=== PATIENT | female | born 1950 | race Caucasian/White ===

== ENCOUNTER 2016-12-08 11:53 | Inpatient (IN) | payer OTHER, MEDICARE ==
[~2016-12-08 11:53] MED LIST: HYDROmorphONE/DILAUDID 1 MG/ML SYR IVP ONE; ONDANSETRON 4 MG/2 ML VIAL IVP ONE
[2016-12-08] MEDS ORDERED: HYDROmorphONE/DILAUDID 1 MG/ML SYR ONE ×2 (11:58→13:24)
[2016-12-08] MEDS ORDERED: ONDANSETRON 4 MG/2 ML VIAL ONE ×2 (11:59→19:03)
[2016-12-08] MEDS ORDERED: HYDROmorphONE/DILAUDID 1 MG/ML SYR IVP ONE (13:40)
[2016-12-08] MEDS ORDERED: BUPIVACAINE 0.5% 30 ML SDV ONE (14:27)
[2016-12-08] MEDS ORDERED: ROPIVACAINE HCL 20 MG/10 ML INJ EP ONE (14:28)
[2016-12-08] MEDS ORDERED: BACITRACIN 50,000 UNITS/10 ML SYR IRR ONE (14:28)
[2016-12-08] MEDS ORDERED: POLYMYXIN B SULFATE 500,000 UNIT/10 ML SYR IRR ONE (14:28)
[2016-12-08] MEDS ORDERED: ONDANSETRON 4 MG/2 ML VIAL IVP PRN (14:58)
[2016-12-08] MEDS ORDERED: D5W LR 1,000 ML IV SCH (15:00)
--- NOTE | 2016-12-08 16:04 | EDPHY ---
H & P Stated Complaint: tib/fib fracture following fall. - Personal History Current Tetanus/Diphtheria Vaccine: Yes Current Tetanus Diphtheria and Acellular Pertussis (TDAP): Yes - Medical/Surgical History Hx Asthma: No Hx Chronic Respiratory Disease: No Hx Diabetes: No Hx Cardiac Disease: No Hx Renal Disease: No Hx Cirrhosis: No Hx Alcoholism: No Hx HIV/AIDS: No Hx Splenectomy or Spleen Trauma: No Other PMH: osteoporosis, VERTIGO. Seasonal allergies - Social History Smoking Status: Never smoked Time Seen by Provider: 12/08/16 12:00 HPI/ROS: Chief complaint: Right leg injury History of present illness: This is a 66-year-old female who presents to the emergency department for a right leg injury. Patient was hiking when she tripped and fell striking her lower leg against the ground. She noted a deformity. She did try to push the leg straight again. She has had pain in this region. She is unable to ambulate. She had to be rescued by [facility] and was brought to the emergency department by EMS. She denies open wounds to the leg. She denies abnormal coolness or paresthesias in the leg. Patient denies trauma to the rest of the body including the head or neck. Review of systems: A 10 point review of systems was obtained and other than described above was negative (Frank Cooper) - Physical Exam Exam: General Appearance: Alert, nontoxic Eyes: PERRLA Respiratory: Lungs clear to auscultation bilaterally Cardiovascular: Regular rate and rhythm. DP and PT pulses 2+. Gastrointestinal: Soft, nondistended, nontender. Neurological: Alert and oriented. Sensation intact in the right lower extremity. Skin: Contusion of the right lower leg. No open wounds noted. Musculoskeletal: Head is normocephalic, atraumatic. Spine is nontender to palpation. There is pain in the right lower extremity and right ankle. She does not want move the right leg secondary to pain. Muscle compartments of the right lower leg are soft on my evaluation. The other extremities are unremarkable. (Frank Cooper) Constitutional: Initial Vital Signs Heart Rate 59 L 12/08/16 11:53 Respiratory Rate 18 12/08/16 11:53 Blood Pressure 128/74 H 12/08/16 11:53 O2 Sat (%) 100 12/08/16 11:53 O2 Delivery Mode Nasal Cannula O2 (L/minute) 2 Allergies/Adverse Reactions: No Known Allergies Allergy (Unverified 03/12/16 07:50) Home Medications: Medication Instructions Recorded Fluticasone Nasal [Flonase Nasal 1 sprays NASAL DAILY 03/12/16 [facility] (RX)] Estring 2mg 1 unit VG .[id number] 12/08/16 Medical Decision Making - Diagnostics Imaging: Discussed imaging studies w/ call center team leader Radiologist, I viewed and interpreted images myself Procedures: Procedure: Splint placement. A posterior long leg splint was applied. After application of the splint I returned and re-examined the patient. The splint was adequately immobilizing the joint and distal to the splint the patient's circulation and sensation was intact. (Frank Cooper) ED Course/Re-evaluation: Patient is discussed with my secondary supervising physician Dr. Digna Cummins. Patient presents to the emergency department for a right leg injury. Her leg is neurovascularly intact. X-rays confirm significant fractures. By history and physical exam no evidence of trauma to other parts of the body. On-call orthopedic surgery, Dr. Mari is consulted. He is going to take the patient to the operating room today. He requests a CT scan of the ankle. The plan has been discussed with the patient who voiced understanding and agreement with it. (Frank Cooper) Differential Diagnosis: Included but not limited to contusion, sprain or strain, bony fracture, joint dislocation, compartment syndrome (Frank Cooper) Other Provider: The patient was evaluated and managed by the Physician Insurance Associate/ Nurse Practitioner. I discussed the patient's presentation and course with the midlevel provider with them and agree with the evaluation. My co-signature indicates that I have reviewed this chart and I agree with the findings and plan of care as documented. I am the secondary supervising physician. (Digna Cummins) - Data Points Medications Given: Discontinued Medications Hydromorphone HCl (Dilaudid) 1 mg IVP EDNOW ONE Stop: 12/08/16 13:41 Last Admin: 12/08/16 13:41 Dose: 1 mg Hydromorphone HCl (Dilaudid) 1 mg IVP EDNOW ONE Stop: 12/08/16 10:01 Last Admin: 12/08/16 11:53 Dose: 1 mg Dextrose/Lactated Ringer's (D5w Lr) 1,000 mls @ 150 mls/hr IV CONT ATA Stop: 06/06/17 14:59 Last Admin: 12/08/16 15:15 Dose: 1,000 mls Cefazolin Sodium/Dextrose (Ancef 1 Gm (Premix)) 50 mls @ 200 mls/hr IV Q8H ATA PRN Reason: Protocol Stop: 12/09/16 09:44 Last Admin: 12/09/16 10:13 Dose: 50 mls Potassium Chloride/Dextrose/Sod Cl (D5w 1/2 Ns W/ 20 Kcl/L) 1,000 mls @ 125 mls /hr IV CONT ATA Stop: 06/06/17 20:14 Last Admin: 12/09/16 03:33 Dose: 1,000 mls Lactated Ringer's (Lr) 1,000 mls @ 0 mls/hr IV ONCE ONE PRN Reason: As Directed Stop: 12/09/16 08:01 Last Admin: 12/09/16 08:16 Dose: 1,000 mls Sodium Chloride (Ns) 250 mls @ 200 mls/hr IV ONCE ONE Stop: 12/09/16 11:47 Last Admin: 12/09/16 10:37 Dose: 250 mls Ondansetron HCl (Zofran) 4 mg IVP ONCE ONE Stop: 12/08/16 10:01 Last Admin: 12/08/16 11:53 Dose: 4 mg Pneumococcal 13-Valent Conj Vacc (Prevnar 13 Syringe) 0.5 ml IM .ONCE ONE Stop: 12/09/16 14:15 Last Admin: 12/09/16 16:06 Dose: 0.5 ml Departure - Departure Disposition: [facility] Acute Clinical Impression: Leg fracture, right Qualifiers: Encounter type: initial encounter Fracture type: closed Qualified Code(s): S82.91XA - Unspecified fracture of right lower leg, initial encounter for closed fracture Condition: Good
[2016-12-08] MEDS ORDERED: MIDAZOLAM 2 MG/2 ML VIAL ONE (17:22)
[2016-12-08] MEDS ORDERED: CEFAZOLIN 1 GM/DEXTROSE/50 ML BAG IV ONE (17:23)
[2016-12-08] MEDS ORDERED: PROPOFOL/EMULSION 500 MG/50 ML BOTTLE IV ONE (17:27)
[2016-12-08] MEDS ORDERED: fentaNYL 250 MCG/5 ML INJ ONE (17:30)
[2016-12-08] MEDS ORDERED: ROCURONIUM 100 MG/10 ML VIAL ONE (19:03)
[2016-12-08] MEDS ORDERED: LIDOCAINE 2% 5 ML SDV ONE (19:03)
[2016-12-08] MEDS ORDERED: DEXAMETHASONE 4 MG/ML VIAL ONE (19:03)
[2016-12-08] MEDS ORDERED: SUGAMMADEX SODIUM 200 MG/2 ML VIAL IVP ONE (19:12)
[2016-12-08] MEDS ORDERED: fentaNYL 100 MCG/2 ML INJ ONE (19:45)
[2016-12-08] MEDS ORDERED: HYDROmorphONE/DILAUDID 1 MG/ML SYR IVP PRN (20:03)
[2016-12-08] MEDS ORDERED: ACETAMINOPHEN 325 MG TAB PO PRN (20:03)
[2016-12-08] MEDS ORDERED: HYDROCODONE/APAP 5/325 TAB PO PRN (20:03)
--- NOTE | 2016-12-08 20:24 | GHP ---
[f rep st] HISTORY AND PHYSICAL DATE OF ADMISSION: 12/08/2016 CHIEF COMPLAINT: Right leg pain. DIAGNOSIS: 1. Comminuted right tibia/fibula extending to the ankle joint. 2. Ankle fracture with unstable syndesmosis. 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 She was hiking up [place], slipped down a g ravel path, caught her right leg on a root, had deformity of the tibia. She was able to reduce it a nd try to make it straight, and had to be extricated from the trail. Last meal was at 6:30 a.m. Is olated injury. Triaged in the emergency room. X-rays and CT were taken of the lower extremity show ed a comminuted fracture of the proximal fibula, midshaft tibia extending into the plafond with an a nkle fracture. The patient was then placed in a splint. PHYSICAL EXAMINATION: EXTREMITIES: In the preop holding area, included a well placed splint. Mobi le toes. No pain with passive range of motion of her right toes. Left lower extremity, bilateral u pper extremity without trauma or pain. ABDOMEN: Soft. Pelvis stable. Please see details of ER H and P. DIAGNOSTIC STUDIES: Imaging reviewed. IMPRESSION/RECOMMENDATIONS: Complex right midshaft femur fracture extending into the plafond. CT s can shows a coronal split that is nondisplaced with an ankle fracture and a widened mortise. The pa tient elected for operative intervention and fixation of right tibia. Risks, benefits, expectations and alternatives discussed. was at the bedside. /[id number]/MODL
--- NOTE | 2016-12-08 20:45 | GOP ---
[f rep st] OPERATIVE REPORT DATE OF OPERATION: 12/08/2016 SURGEON: Chadwick Mari MD PREOPERATIVE DIAGNOSIS: 1. Comminuted right tibia shaft fracture extending into the plafond. 2. Right ankle fracture. POSTOPERATIVE DIAGNOSIS: 1. Comminuted right tibia shaft fracture extending into the plafond. 2. Right ankle fracture. PROCEDURE PERFORMED: 1. Intramedullary nailing of the right tibia. 2. Open reduction, internal fixation of lateral malleolus. 3. Open reduction, internal fixation of syndesmosis. 4. Intraoperative fluoroscopy interpreted by surgeon. FINDINGS: ESTIMATED BLOOD LOSS: 200 cc. INDICATIONS: A 66-year-old female with a fall up in the [facility]. Please see detail s of ER H and P. X-rays and CT scan of her ankle confirm a tibial shaft fracture which included a s mall nondisplaced segment into the tibial plafond and an unstable ankle fracture with a widened mort ise. The patient elects for operative intervention. DESCRIPTION OF PROCEDURE: The patient was identified in the preoperative holding area. Consent, la terality, and preoperative antibiotics were confirmed and delivered. All questions were answered. Her was at the bedside. Right lower extremity was identified. Patient brought into the operating room, fracture table, general anesthesia. Extremities well padde d. Greater trochanter bump up was used on the right side. Anticipated use of triangles. No thigh tourniquet was used. The right lower extremity was prepped and draped in the usual fashion. Surgic al time-out was performed. With the medium triangle, on fluoroscopic views, we did a medial parapat ellar incision. Anterior tibial guide pin was placed just anterior to the joint line. We confirmed under fluoroscopic views on the AP lateral view. We over-reamed with a reamer. Placed a ball-tipp ed guidewire down. We had essentially a nice reduction of the ball-tipped guidewire just short of t he plafond. With successive reaming starting with an entry reamer all the way to an 11.5 mm reamer by 1 mm, we were able to ream down to the plafond. We ensured there was no disturbance of the plafo nd. We measured the nail and then chose a 315 mm nail. We placed this down, buried the tip underne ath the tibia, and confirmed on AP lateral view that we did not displace the plafond fracture. We p laced 2 screws proximally, 2 screws distally. Then we checked with mortise view and an externally r otated mortise view and a Cotton test and showed that the fibula was unstable with an unstable morti se. We approached the lateral malleolus. Sharp dissection down to the bone. We reduced with point ed reduction clamps and chose a 7-hole plate. The bone was osteoporotic and thus, we used compressi on screws actually across the syndesmosis which we were going to fix anyway and then locking screws at the most distal ends. We again checked the ankle range of motion. We had a nice mortise view wi th no medial clear space opening with external rotation. We copiously washed out the wounds with 3 L of warm normal saline. 3-0 Monocryl for deep subcutaneous closure and michael and nylon for skin closure. 30 cc of 0.5% Marcaine plain were used throughout the incisions. Xeroform, 4 x 4's, ABD, Webril, Pj, and a boot applied. IMPLANTS USED: 1. A 10 x 315 mm nail by [employer], 2 proximal interlocking screws, 2 distal interlocking screws. 2. 1/3 tubular locking plate for lateral malleolus with a 3.5 cortical screw for syndesmosis fixati on. COMPLICATIONS: None. TOURNIQUET: No tourniquet was used. TOTAL SURGICAL TIME: 90 minutes. DISPOSITION: Extubated awake to the PACU in stable condition. /[id number]/MODL
[2016-12-08] MEDS: OXYCODONE/APAP 5/325 TAB PO PRN (20:48)
[2016-12-08] MEDS: D5W 1/2 NS W/ 20 KCl/L 1,000 ML IV SCH (20:49)
[2016-12-09] MEDS: OXYCODONE/APAP 5/325 TAB PO PRN ×5 (01:30→21:19)
[2016-12-09] MEDS: D5W 1/2 NS W/ 20 KCl/L 1,000 ML IV SCH (03:33)
[2016-12-09] MEDS ORDERED: LR 1,000 ML IV ONE (08:00)
[2016-12-09 08:24] LABS: % IMMATURE GRANULYOCYTES 0.4 % (0.0-1.1); ABSOLUTE IMMATURE GRANULOCYTES 0.03 10^3/uL (0.00-0.10); ADD DIFF? NO; ADD MORPH? NO; ADD SCAN? NO; ATYPICAL LYMPHOCYTE FLAG 0 (0-99); FRAGMENT RBC FLAG 0 (0-99); HEMATOCRIT 32.2 % (38.0-47.0); HEMOGLOBIN 10.4 g/dL (12.6-16.3); LEFT SHIFT FLG 10 (0-99); LIPEMIA HEMOLYSIS FLAG 80 (0-99); MEAN CELL HEMOGLOBIN 30.1 pg (27.9-34.1); MEAN CELL HEMOGLOBIN CONCENTR. 32.3 g/dL (32.4-36.7); MEAN CELL VOLUME 93.3 fL (81.5-99.8); MEAN PLATELET VOLUME 10.4 fL (8.7-11.7); PLATELET CLUMPS FLAG 20 (0-99); PLATELET COUNT 195 10^3/uL (150-400); RED BLOOD CELL COUNT 3.45 10^6/uL (4.18-5.33); RED CELL DISTRIBUTION WIDTH 13.2 % (11.5-15.2)
--- NOTE | 2016-12-09 09:27 | SOAPPROG ---
SOAP Progress Note Assessment/Plan: Assessment/Plan: POD 1 s/p R IM tibial nail, ORIF lateral malleolus, ORIF syndesmosis Walking boot in place PO medication controlling pain Awaiting PT/OT assessment Likely d/c tomorrow once able to ambulate - suggested her bring walker and crutches to hospital so they can be fit to her size Subjective: Federico is doing well, POD 1. BP was low this morning; she has not gotten out of bed yet and has not seen OT/PT. Eating and drinking well though no BM and yet to urinate (catheter removed this AM). Pain 2/3-10 when lying still. Objective: Vital Signs Temp Pulse Resp BP Pulse Ox 36.7 C 54 L 14 86/47 L 100 12/09/16 07:33 12/09/16 07:33 12/09/16 07:33 12/09/16 07:33 12/09/16 07:33 Laboratory Results 12/09/16 08:15 12/08/16 12/09/16 12/10/16 05:59 05:59 05:59 Intake Total 4205 Output Total 2570 Balance 1635 Physical Exam - Physical Exam General Appearance: alert, no apparent distress Peripheral Pulses: 2+: dorsalis-pedis (R), dorsalis-pedis (L) Extremities: other (R 4/5 JOAN DF, PF; non painful active movement of toes; dressings in place) Neuro/Psych: alert ICD10 Worksheet Patient Problems: Problems Problem Status Onset Leg fracture, right Acute
[2016-12-09] MEDS: ENOXAPARIN 40 MG/0.4 ML SYR SC SCH (10:13)
[2016-12-09] MEDS ORDERED: NS 250 ML IV ONE (10:33)
[2016-12-09 12:05] LABS: ALANINE AMINOTRANSFERASE 29 IU/L (9-52); ALKALINE PHOSPHATASE 69 IU/L (38-126); ANION GAP 7 mEq/L (8-16); ASPARTATE AMINOTRANSFERASE 26 IU/L (14-46); BILIRUBIN,TOTAL 0.6 mg/dL (0.1-1.4); CALCIUM 8.1 mg/dL (8.5-10.4); CARBON DIOXIDE 23 mEq/l (22-31); CHLORIDE 108 mEq/L (97-110); CREATININE 0.8 mg/dL (0.6-1.0); GLOMERULAR FILTRATION RATE > 60; GLUCOSE 103 mg/dL (70-100); POTASSIUM 4.1 mEq/L (3.5-5.2); SODIUM 138 mEq/L (134-144); TOTAL PROTEIN 5.1 g/dL (6.3-8.2)
[2016-12-09 12:16] LABS: TROPONIN I < 0.012 ng/mL (0-0.034)
--- NOTE | 2016-12-09 12:27 | CPEKG ---
Heart Rate: 62 RR Interval: 968 P-R Interval: 156 QRSD Interval: 76 QT Interval: 416 QTC Interval: 423 P Elcho: 76 QRS Elcho: 77 T Wave Elcho: 63 EKG Severity - NORMAL ECG - EKG Impression: SINUS RHYTHM Electronically Signed By: Corwin Rose 09-Dec-2016 19:06:57
[2016-12-09] MEDS: NS 1,000 ML IV SCH ×2 (13:07→21:21)
[2016-12-09 13:33] LABS: HEMATOCRIT 31.8 % (38.0-47.0); HEMOGLOBIN 10.3 g/dL (12.6-16.3)
--- NOTE | 2016-12-09 13:38 | GCON ---
[f rep st] CONSULTATION CONSULTATION. DATE OF CONSULTATION: 12/09/2016 REASON FOR CONSULTATION: I was asked by Dr. Mari to see the patient in regards to her hypotension. HISTORY OF PRESENT ILLNESS: This is a 66-year-old, healthy female who was hiking, fell and suffered a tibia as well as fibular fracture. This was operatively repaired last night by Dr. Mari. I revi ewed the operative note. He noted 200 cc of estimated blood loss intraoperatively. Otherwise, proc edure appears uncomplicated. Overnight and this morning, her blood pressures were noted to be low, as low as 86/47 with a heart rate of 54. She has been relatively asymptomatic with no dizziness, ch est pain, or shortness of breath. She tells me that her blood pressures may run often times as low as about 110/70. This is slightly lower than normal. She has passed out numerous times in the past which sound all orthostatic in nature. These occurred when she went from sitting or lying to stand ing, especially when dehydrated. She had an episode of dizziness and lightheadedness while skiing a year and a half ago which prompted a visit to the emergency department. They recommended a followu p stress test which she had performed. I reviewed this in [place]. She had a normal stress EKG te st. Also, echocardiogram noted normal resting and stress systolic function. She denies any other c omplaints including fever and dysuria. Her blood pressure is improved with a small bolus of normal saline, currently 104/51 with heart rate of 78. I note that she also has been receiving Percocet, 2 tabs this morning, which she does not normally take. PAST MEDICAL/SURGICAL HISTORY: Cystocele and rectocele repair. MEDICATIONS: Flonase and Estring. ALLERGIES: None. SOCIAL HISTORY: She drinks alcohol. She does not smoke. FAMILY HISTORY: Reviewed and noncontributory. REVIEW OF SYSTEMS: 10-point review of systems is conducted and is negative except per HPI. PHYSICAL EXAMINATION: VITAL SIGNS: Current blood pressure 104/51, heart rate 78, respiration rate 14, saturating 94% on room air. Temperature is 37.1. GENERAL: The patient is a very pleasant fema le who is alert and oriented. Appears in no acute distress. HEENT: Shows her to be normocephalic, atraumatic. CARDIOVASCULAR: Regular rate and rhythm. No murmurs, rubs, or gallops. PULMONARY: Lungs clear to auscultation bilaterally. ABDOMEN: Soft, nontender, nondistended. SKIN: No rash. : No Wilkinson. NEUROLOGIC: Shows her to be alert and oriented x3. She is moving all extremities. PSYCHIATRIC: Normal mood and affect. EXTREMITIES: Shows her right lower extremity to be in an A ce wrap bandage. She has sensation in her toes. LABORATORY DATA: Hemoglobin is 10.4. Basic metabolic panel is normal. Troponin is negative. DATA: 1. I personally viewed and interpreted her EKG. This shows sinus rhythm with no acute ischemic moreno nges. 2. I reviewed her chart. 3. I reviewed her tibia and fibula x-ray. This shows comminuted tibia as well as fibular fractures . IMPRESSION AND PLAN: A 66-year-old female postoperative with hypotension. 1. Hypotension: I do not see any terribly concerning findings in my evaluation at this point. Cer renenly, we will monitor her closely and alert Hospital Medicine if she becomes symptomatic. I think that most likely her hypotension is from blood loss intraoperatively, dehydration, and narcotic adm inistration. We will continue hydrating her and follow closely. I have asked her nurse, dami Felix alert me if she becomes symptomatic or if she has any worsening hypotension. We could order echoc ardiogram and further workup at that point. 2. Anemia: Hemoglobin 10.4 today, last was checked 9 months ago and was 14.6. I suspect that this is acute given her low blood pressures. We will recheck H and H this afternoon and then again rocío rrow morning. She does not need a transfusion at this point. 3. Tibia and fibula fracture: Status post operative fixation by Dr. Mari. Thank you for involving Hospital Medicine in the care of the patient. We will continue to follow wi th you. /[id number]/MODL
[2016-12-09] MEDS ORDERED: PNEUMOC 13-VAL CONJ-DIP CRM/PF 0.5 ML SYR IM ONE (14:14)
[2016-12-10] MEDS: OXYCODONE/APAP 5/325 TAB PO PRN ×3 (04:48→13:04)
[2016-12-10 05:33] LABS: % IMMATURE GRANULYOCYTES 0.1 % (0.0-1.1); ABSOLUTE IMMATURE GRANULOCYTES 0.01 10^3/uL (0.00-0.10); ADD DIFF? NO; ADD MORPH? NO; ADD SCAN? NO; ATYPICAL LYMPHOCYTE FLAG 0 (0-99); FRAGMENT RBC FLAG 0 (0-99); HEMATOCRIT 30.8 % (38.0-47.0); HEMOGLOBIN 9.9 g/dL (12.6-16.3); LEFT SHIFT FLG 0 (0-99); LIPEMIA HEMOLYSIS FLAG 80 (0-99); MEAN CELL HEMOGLOBIN 30.6 pg (27.9-34.1); MEAN CELL HEMOGLOBIN CONCENTR. 32.1 g/dL (32.4-36.7); MEAN CELL VOLUME 95.1 fL (81.5-99.8); MEAN PLATELET VOLUME 10.8 fL (8.7-11.7); PLATELET CLUMPS FLAG 0 (0-99); PLATELET COUNT 185 10^3/uL (150-400); RED BLOOD CELL COUNT 3.24 10^6/uL (4.18-5.33); RED CELL DISTRIBUTION WIDTH 13.5 % (11.5-15.2)
[2016-12-10 07:33] VITALS: BP 117/58; PULSE 63; RESP 15; TEMP 98.2; O2SAT 96
[2016-12-10] MEDS: ENOXAPARIN 40 MG/0.4 ML SYR SC SCH (08:06)
--- NOTE | 2016-12-10 09:26 | HOSPPROG ---
Hospitalist Progress Note Assessment/Plan: # hypotension d/t hypovolemia, resolved # acute blood loss anemia, post-op # tib/fib fracture s/p operative repair Recs: - ok for discharge from IM perspective when ok with Dr Mari - dc IVF; liberal salt diet for now, push fluids - VTE prophylaxis, duration per ortho Subjective: no dizziness today when standing Objective: Vital Signs Temp Pulse Resp BP Pulse Ox 36.8 C 63 15 117/58 L 96 12/10/16 07:33 12/10/16 07:33 12/10/16 07:33 12/10/16 07:33 12/10/16 07:33 Laboratory Results 12/10/16 04:01 12/09/16 11:40 12/09/16 12/10/16 12/11/16 05:59 05:59 05:59 Intake Total 4205 4650 Output Total 2570 600 Balance 1635 4050 - Physical Exam Constitutional: no apparent distress, appears nourished Cardiovascular: regular rate and rhythym, no murmur, rub, or gallop Respiratory: no respiratory distress, no rales or rhonchi, clear to auscultation Gastrointestinal: normoactive bowel sounds, soft, non-tender abdomen, no palpable masses ICD10 Worksheet Patient Problems: Problems Problem Status Onset Leg fracture, right Acute
--- NOTE | 2016-12-10 11:49 | PDDCSUM ---
Discharge Summary Discharge Summary: Federico Cunningham is a pleasant 66 yo female, pod #2 s/p right tibia IMN nail and ORIF right ankle by dr. correa, did well over night without any issues, reports her pain is well controlled. Denies cp/sob, denies numbness/tingling, denies n/v/d/ c. PE: dressings c/d/i, nvid w/ brisk cap refill, dp 2+, full digital rom, no ankle rom assessed. 66 yo female, pod #2 s/p right tibia IMN and ankle orif by dr. correa -to be discharged home today -RLE Toe touch weight bearing with walker -proph: aspirin 325 mg qd for 10 days, meghan dixon, and IS -follow up 7-10 days s/p surgery w/ dr. correa or maria l jon
== END 2016-12-10 16:42 | disposition home or self-care (01) | DRG 494 ==
LOC: EDUNIT# → F3N 13:59
PROVIDERS: ADMIT Orthopaedic Surgery; ATTEND Orthopaedic Surgery
PROC: 0QHG06Z Insertion of Intramedullary Internal Fixation Device into Right Tibia, Open Approach (ICD-10-PCS; principal; 2016-12-08 17:27)
PROC: 0QSJ04Z Reposition Right Fibula with Internal Fixation Device, Open Approach (ICD-10-PCS; principal; 2016-12-08 17:27)
DX: S82.251A Displaced comminuted fracture of shaft of right tibia, initial encounter for closed fracture (principal); S82.831A Other fracture of upper and lower end of right fibula, initial encounter for closed fracture; W01.0XXA Fall on same level from slipping, tripping and stumbling without subsequent striking against object, initial encounter; Y92.828 Other wilderness area as the place of occurrence of the external cause; Y93.01 Activity, walking, marching and hiking; I95.9 Hypotension, unspecified; R42 Dizziness and giddiness; M81.0 Age-related osteoporosis without current pathological fracture
CPT/HCPCS: 96374; 97116-GP; 97161-GP; 97165-GO; 97530-GO; 97535-GO; C1713; C1769; G0009; G8978-GO-CI; G8978-GP-CJ; G8979-GO-CI; G8979-GP-CI; G8980-GO-CI; G8987-GO-CK; G8988-GO-CI; J0690; J1100; J1170; J1650; J2250; J2405; J2704; J2795; J3010

== ENCOUNTER → 2017-03-13 | Outpatient (CLI) | payer OTHER, MEDICARE | LOC: FIMAGING 08:15 | PROVIDERS: ATTEND Physician Assistant | DX: Z12.31 Encounter for screening mammogram for malignant neoplasm of breast (principal) | CPT/HCPCS: G0202 ==

== ENCOUNTER → 2017-05-01 | Outpatient (CLI) | payer OTHER, MEDICARE | LOC: FIMAGING 10:21 | PROVIDERS: ATTEND Physician Assistant | DX: Z13.820 Encounter for screening for osteoporosis (principal); M81.8 Other osteoporosis without current pathological fracture; R94.4 Abnormal results of kidney function studies ==

== ENCOUNTER → 2018-04-03 | Outpatient (CLI) | payer OTHER, MEDICARE | LOC: FIMAGING 09:16 | PROVIDERS: ATTEND Physician Assistant | DX: Z12.31 Encounter for screening mammogram for malignant neoplasm of breast (principal) ==